=== PATIENT | female | born 2000 | race Caucasian/White ===

== ENCOUNTER 2020-11-23 17:35 | Emergency (ER) | payer BC ==
[~2020-11-23] VITALS: Ht 170.2 cm; Wt 113.4 kg
[2020-11-23 18:10] VITALS: BP 138/89
--- NOTE | 2020-11-23 18:15 | NUR ---
PT TO WAIT IN LOBBY
--- NOTE | 2020-11-23 22:46 | NUR ---
CALLED FOR PT IN LOBBY AND CALLED PERSONAL CELL, NO ANSWER.
--- NOTE | 2020-11-23 22:46 | NUR ---
PATIENT ELOPED FROM FACILITY. DISCHARGE INSTRUCTIONS NOT GIVEN TO PATIENT. DR. CARDOZA NOTIFIED.
== END 2020-11-23 22:46 | disposition left against medical advice (07) ==
LOC: MED 17:35
DX: M79.604 Pain in right leg (principal); Z53.21 Procedure and treatment not carried out due to patient leaving prior to being seen by health care provider
CPT/HCPCS: 73502; 73562; 73610